=== PATIENT | female | born 1995 | race Caucasian/White ===

== ENCOUNTER 2018-04-25 07:38 | Emergency (ER) | payer OTHER, SELFPAY ==
[2018-04-25 07:52] VITALS: BP 109/76; PULSE 90; RESP 12; TEMP 36.3; O2SAT 98
[2018-04-25 08:07] LABS: WBC Urine None Seen (0-5/HPF)
[2018-04-25 08:17] LABS: Bacteria Urine Few (2-10); Mucus Urine 1+ (Negative); RBC Urine 5-10/HPF (0-5/HPF); Squamous Epithelial Cell Urine 0-1 /HPF
[2018-04-25 08:18] LABS: Culture Indicated Urine Cult Not Indicated
--- NOTE | 2018-04-25 08:36 | ED_ITS ---
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 Patient states that the pain started back in December. 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 She states that she has had pain off and on since then. It has been the same pain in the same location since December. His right lower quadrant. She states that is a sharp pain. When it comes on it lasts approximately 1 week with times when it is better than others. She states that it is not related to her menstrual cycle. She is on derrek for control. No prior history. No prior STD history. She is not concerned about any STDs. She denies any vaginal bleeding. No urinary symptoms no bowel symptoms no prior abdominal surgeries. She had an ultrasound performed 1 week ago both vaginal and abdominal for this pain. I do not have these results to review however patient states that she was told that everything was normal however they could not evaluate the appendix. She was informed at that time that if her pain returns she needed to come to the emergency department. Related Data Home Medications Medication Instructions Recorded Confirmed No Known Home Medications 04/25/18 04/25/18 Allergies Allergy/AdvReac Type Severity Reaction Status Date / Time No Known Drug Allergies Allergy Verified 04/25/18 07:58 Review of Systems Constitutional Denies fatigue and Denies fever(s) ENT Ears, Nose, Mouth, and Throat: Denies dizziness Cardiovascular Denies chest pain and Denies dyspnea Respiratory Denies dyspnea Gastrointestinal Gastrointestinal: Reports abdominal pain, Denies constipation, Denies cramping, Denies diarrhea, Reports nausea and Denies vomiting Genitourinary Denies abnormal vaginal bleeding, Denies hematuria, Denies urinary frequency, Denies dysuria, Denies pelvic pain, Denies flank pain, Denies urinary incontinence and Denies urinary hesitancy Musculoskeletal Denies myalgias and Denies arthralgias Integumentary/Breasts Denies rash Neurologic Denies confusion and Denies dizziness Psychiatric Denies confusion Endocrine Denies fatigue Hematologic/Lymphatic Denies easy bleeding and Denies easy bruising [facility] Medical History Healthy adult (Acute) Surgical History No history of previous surgery (Acute) Exam Initial Vital Signs Initial Vital Signs: Vital Signs Temperature 97.3 F L 04/25/18 07:52 Pulse Rate 90 04/25/18 07:52 Respiratory Rate 12 04/25/18 07:52 Blood Pressure 109/76 04/25/18 07:52 Pulse Oximetry 98 04/25/18 07:52 Const General: cooperative, healthy appearing, comfortable, well developed, well groomed and No acute distress Nutritional Appearance: average body habitus Orientation: alert, awake and oriented x3 HENMT Head: normal to inspection and normocephalic Resp Effort & Inspection: normal respiratory effort Cardio Rate: regular rate GI Inspection: non-distended Palpation: soft, No firm, No guarding and No tender Back/Spine/Pelvis Back: No CVA tenderness Skin Lesions: no lesions Rashes: no rashes Neuro General: alert, awake and oriented x3 Cognition: normal cognition Speech: speech normal Extrem General: normal to inspection and capillary refill normal Psych Appearance: grossly normal and well kempt Course Orders Ordered: ED Orders 04/25/18 07:55 Urine Microscopic Stat 04/25/18 08:45 Complete Blood Count AUTO DIFF Stat Comprehensive Metabolic Panel Stat Lipase Stat 04/25/18 09:25 CT abdomen pelvis w con Stat Discontinued Medications Sodium Chloride (Normal Saline 0.9%) 1,000 mls @ 1,000 mls/hr IV BOLUS ONE Stop: 04/25/18 09:34 Last Admin: 04/25/18 08:55 Dose: 1,000 mls/hr Vital Signs - 8 hr 04/25/18 07:52 04/25/18 11:16 Temperature 97.3 F L Pulse Rate 90 81 Respiratory Rate 12 14 Blood Pressure 109/76 Blood Pressure [Right Arm] 108/60 Pulse Oximetry 98 100 MDM - Abdominal Pain Lab Data Attestation: I reviewed the patient's lab results. Result diagrams: 04/25/18 08:45 04/25/18 08:45 Lab Results 04/25/18 04/25/18 04/25/18 Range/Units 07:55 08:45 08:45 WBC 5.0 (4.5-11.0) X10^3/uL RBC 4.22 (4.0-5.2) X10^6/uL Hgb 12.8 (12.0-16.0) g/dL Hct 37.2 (36-46) % MCV 88.1 (80-100) fL MCH 30.4 (26-34) PG MCHC 34.6 (30-36) % RDW 14.9 H (11.6-14.8) % Plt Count 225 (150-400) X10^3/uL Neut % (Auto) 60.5 (50-75) % Lymph % (Auto) 29.4 (25-40) % [place] % (Auto) 8.2 (3-14) % Eos % (Auto) 1.4 L (2-4) % Baso % (Auto) 0.5 (0-2) % Neut # (Auto) 3000 (2558-6627) /uL Sodium 138 (137-145) mmol/L Potassium 3.8 (3.4-5.1) mmol/L Chloride 102 (98-107) mmol/L Carbon Dioxide 28 (22-32) mmol/L BUN 12 (7-17) mg/dL Creatinine 0.60 (0.52-1.04) mg/dL Estimated GFR > 60.0 (>60) mL/min BUN/Creatinine Ratio 20.0 (6-22) Glucose 80 (70-100) mg/dL Calcium 8.7 (8.4-10.2) mg/dL Total Bilirubin 0.4 (0.2-1.3) mg/dL AST 29 (14-36) IU/L ALT 20 (9-52) IU/L Alkaline Phosphatase 47 (38-126) U/L Total Protein 6.7 (6.3-8.2) g/dL Albumin 3.8 (3.5-5.0) g/dL Globulin 2.9 (1.7-4.1) g/dL Albumin/Globulin Ratio 1.3 (1.0-2.8) Lipase 106 (23-300) U/L Urine RBC 5-10/hpf H (0-5/HPF) Urine WBC None seen (0-5/HPF) Ur Squamous Epith Cells 0-1 /hpf Urine Bacteria Few (2-10) H (None) Urine Mucus 1+ H (Negative) Ur Culture Indicated? Cult not indicated Micro UA Comment Not Reportable Point of care testing: Point of Care Testing Test Results Negative Urine Dip Bedside Urine Glucose Negative Bedside Urine Bilirubin - Negative Bedside Urine Ketone - Negative Urine Specific [place] 1.030 Bedside Urine Occult Blood ++ Bedside Urine Protein +/- 15 Bedside Urine Urobilinogen - Negative Bedside Urine Nitrite - Negative Bedside Urine Leukocytes - Negative Esterase Imaging Data CT scan - abdomen: Radiologist's impression: PROCEDURE: CT ABDOMEN PELVIS W CON INDICATIONS: right-sided abdominal pain TECHNIQUE: After the administration of intravenous contrast, 5 mm thick sections acquired from the diaphragm to the symphysis. 5 mm coronal and sagittal reformats were acquired. For radiation dose reduction, the following was used: automated exposure control, adjustment of mA and/or kV according to patient size. COMPARISON: None. FINDINGS: Image quality: Excellent. ABDOMEN: Lung bases: Lung bases are clear. Heart size is normal. Solid organs: Liver is normal in size and enhancement. Gallbladder demonstrates no significant CT abnormality. Biliary system is non dilated. Pancreas enhances normally. Spleen is normal in size and enhancement. No adrenal nodules. Kidneys demonstrate normal size and enhancement, without hydronephrosis. Peritoneum and bowel: In this patient with this given history, scrutiny is given to the right lower quadrant. In this patient, a normal-caliber appendix can be seen within the infra-cecal area, which is best demonstrated on series 3 image 20 measuring 4-5 mm in caliber. The terminal ileum appears hyperenhancing and can be seen on series 3 image 23. No dilated loops of small bowel are seen. No free air or significant fluid can be seen. Nodes and vessels: No retroperitoneal or mesenteric adenopathy by size criteria. Aorta and inferior vena cava are normal in size. Miscellaneous: No ventral hernias. PELVIS: Genitourinary: Bladder wall thickness is normal. The cervix demonstrates a somewhat bulbous appearance. Physiologic cystic changes are seen of the adnexal regions. Miscellaneous: No inguinal hernias or adenopathy. Bones: No suspicious bony lesions. No vertebral body compression fractures. Mild levoconvex scoliotic curvature is noted. IMPRESSION: The appendix is believed to be normal. The terminal ileum is somewhat hyperenhancing. Please correlate with potential Crohn's disease. The cervix demonstrates a somewhat bulbous appearance. Please correlate with physical examination findings. No CT abnormality of the gallbladder can be seen. Dictated by: Orlando Ybarra M.D. on 04/25/2018 at 9:02 Approved by: Orlando Ybarra M.D. on 04/25/2018 at 9:11 [facility] Narrative Medical decision making narrative: Patient has a benign abdominal exam. CT scan shows normal appendix. Normal white blood cell count. CT scan is can for any further chronic inflammatory diseases such as Crohn's disease. I discussed all this with the patient. No indication for antibiotics. No indication for surgical consultation. Patient was instructed that she needed to contact her diagnostic medical sonographer to discuss work-related restrictions and potential GI consultation. Patient was given return precautions. She expressed understanding and agreement with plan. Discharge Plan Departure Patient Disposition: Home, Self-Care Clinical Impression: Abdominal pain Instructions: DI for Abdominal Pain-Adult Activity Restrictions/Additional Instructions: You need to discuss with your center medical director any work-related restrictions. Also discussed with your diagnostic medical sonographer the indications for a consultation to see GI. Return to the emergency department for any new or worsening symptoms Prescriptions: No Action No Known Home Medications RF: 0
[2018-04-25] MEDS: SODIUM CHLORIDE 0.9% 1,000 ML 1000 ML IV (08:55)
[2018-04-25 08:57] LABS: Add Manual Diff / Slide Review NO; Basophils Percent Auto 0.5 % (0-2); Eosinophils Percent Auto 1.4 % (2-4); Hematocrit 37.2 % (36-46); Hemoglobin 12.8 g/dL (12.0-16.0); Lymphocytes Percent Auto 29.4 % (25-40); Mean Corpuscular HGB Conc 34.6 % (30-36); Mean Corpuscular Hemoglobin 30.4 PG (26-34); Mean Corpuscular Volume 88.1 fL (80-100); Monocytes Percent Auto 8.2 % (3-14); Neutrophils Absolute Auto 3000 /uL (3000-5900); Neutrophils Percent Auto 60.5 % (50-75); Platelet Count 225 X10^3/uL (150-400); Red Blood Cell Count 4.22 X10^6/uL (4.0-5.2); Red Cell Distribution Width 14.9 % (11.6-14.8)
[2018-04-25 09:08] LABS: Alanine Aminotransferase 20 IU/L (9-52); Albumin 3.8 g/dL (3.5-5.0); Albumin Globulin Ratio 1.3 (1.0-2.8); Alkaline Phosphatase 47 U/L (38-126); Aspartate Aminotransferase 29 IU/L (14-36); Bilirubin Total 0.4 mg/dL (0.2-1.3); Blood Urea Nitrogen 12 mg/dL (7-17); Calcium 8.7 mg/dL (8.4-10.2); Carbon Dioxide 28 mmol/L (22-32); Chloride 102 mmol/L (98-107); Estimated Glomerular Filt Rate > 60.0 mL/min (>60); Globulin 2.9 g/dL (1.7-4.1); Glucose 80 mg/dL (70-100); HEMOLYSIS < 15 (0-50); Lipase 106 U/L (23-300); Potassium 3.8 mmol/L (3.4-5.1); Sodium 138 mmol/L (137-145); Total Protein 6.7 g/dL (6.3-8.2)
--- NOTE | 2018-04-25 09:25 | DI.CT.S_ITS ---
PROCEDURE: CT ABDOMEN PELVIS W CON INDICATIONS: right-sided abdominal pain TECHNIQUE: After the administration of intravenous contrast, 5 mm thick sections acquired from the diaphragm to the symphysis. 5 mm coronal and sagittal reformats were acquired. For radiation dose reduction, the following was used: automated exposure control, adjustment of mA and/or kV according to patient size. COMPARISON: None. FINDINGS: Image quality: Excellent. ABDOMEN: Lung bases: Lung bases are clear. Heart size is normal. Solid organs: Liver is normal in size and enhancement. Gallbladder demonstrates no significant CT abnormality. Biliary system is non dilated. Pancreas enhances normally. Spleen is normal in size and enhancement. No adrenal nodules. Kidneys demonstrate normal size and enhancement, without hydronephrosis. Peritoneum and bowel: In this patient with this given history, scrutiny is given to the right lower quadrant. In this patient, a normal-caliber appendix can be seen within the infra-cecal area, which is best demonstrated on series 3 image 20 measuring 4-5 mm in caliber. The terminal ileum appears hyperenhancing and can be seen on series 3 image 23. No dilated loops of small bowel are seen. No free air or significant fluid can be seen. Nodes and vessels: No retroperitoneal or mesenteric adenopathy by size criteria. Aorta and inferior vena cava are normal in size. Miscellaneous: No ventral hernias. PELVIS: Genitourinary: Bladder wall thickness is normal. The cervix demonstrates a somewhat bulbous appearance. Physiologic cystic changes are seen of the adnexal regions. Miscellaneous: No inguinal hernias or adenopathy. Bones: No suspicious bony lesions. No vertebral body compression fractures. Mild levoconvex scoliotic curvature is noted. IMPRESSION: The appendix is believed to be normal. The terminal ileum is somewhat hyperenhancing. Please correlate with potential Crohn's disease. The cervix demonstrates a somewhat bulbous appearance. Please correlate with physical examination findings. No CT abnormality of the gallbladder can be seen. Dictated by: Orlando Ybarra M.D. on 04/25/2018 at 9:02 Approved by: Orlando Ybarra M.D. on 04/25/2018 at 9:11
[2018-04-25 11:16] VITALS: BP 108/60; PULSE 81; RESP 14; O2SAT 100
== END 2018-04-25 11:50 | disposition home or self-care (01) ==
PROVIDERS: Emergency Provider Emergency Medicine; PCP General Practice
DX: R10.9 Unspecified abdominal pain (principal)
CPT/HCPCS: 36591; 74177; 80053; 81003; 81015; 81025; 83690; 85025; 96360; 96361; 99283; 99284; Q9967